=== PATIENT | male | born 1960 | race Caucasian/White ===

== ENCOUNTER 2022-07-26 19:05 | Outpatient (CLI) | payer OTHER, SELFPAY | END 2022-07-26 19:06 | disposition home or self-care (01) | PROVIDERS: PCP Family Medicine; Visit Provider Nurse Practitioner Family | DX: L03.90 Cellulitis, unspecified (principal) | CPT/HCPCS: 86618 ==

== ENCOUNTER 2022-10-20 19:35 | Emergency (ER) | payer OTHER, SELFPAY ==
[2022-10-20] VITALS (10 sets, daily range): BP systolic 135–169; BP diastolic 79–107; PULSE 54–75; RESP 16; TEMP 36.7; O2SAT 96–98; BMI 31.2
--- NOTE | 2022-10-20 19:50 | ED.GENADULT ---
HPI - General Adult General Chief complaint: Arrhythmia/Palpitations Stated complaint: A Fib type stuff Time Seen by Provider: 10/20/22 19:38 History of Present Illness HPI narrative: CC: Intermittent Chest Pain w/ Exertion pt. noticed irregular heart rate on watch. feels fine right now. denies chest pain, shortness of breath. 61-year-old man presenting to the emergency department with concern of ?AFib type stuff?. Has been having episodes particularly with exertion where will feel his heart start to race and feel it deep ache in his upper chest sometimes spreading into jaw and both arms. Can be a little short of breath with this to. Evaluated in the past for similar symptoms though does not sound like they were quite as intense. Did have placement of Holter monitor and echocardiogram. 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 No treatments otherwise done. Sounds like has been having more frequent episodes and a few days ago 1 lasting as long as 15 minutes that left him rather tired afterwards. It may last only minute or to. Apple watch monitoring has recorded heart rates as high as the 1 50s briefly I think even low 160s. Rhythm monitoring presented here as captured on their phone shows an irregular heartbeat that does not appear to show P ways and is in the low 100s. This would appear to be atrial fibrillation. Does not describe leg pain with ambulation. At rest feels well. Does drink caffeine and alcohol. No family history of arrhythmias. Medications are reviewed. Amlodipine for blood pressure. Also losartan. Does not take a beta-vinh. History of sleep apnea using CPAP. They also recall having a tick bite this last summer, July I believe, where a tick that was not believed to have been a deer tick nibbled on his belly button. Subsequently developed a palm sized hard red rash periumbilical. Follow-up testing is reported to have been unclear. They are wondering if this might be related to these more recent events. At the time had been taking low-dose doxycycline as continues to do for rosacea and was also subsequently treated with a full dose of doxycycline for 10 days. Related Data Home Medications Medication Instructions Recorded Confirmed allopurinol 300 mg tablet 300 mg PO DAILY 07/26/22 10/20/22 amlodipine 10 mg tablet 10 mg PO DAILY 07/26/22 10/20/22 doxazosin 4 mg tablet 4 mg PO BID 07/26/22 10/20/22 doxycycline hyclate 50 mg capsule 50 mg PO DAILY 07/26/22 10/20/22 losartan 100 mg tablet 100 mg PO DAILY 07/26/22 10/20/22 omeprazole 20 mg capsule,delayed 40 mg PO QDAY 07/26/22 10/20/22 release trazodone 50 mg tablet 50 mg PO HS 07/26/22 10/20/22 Previous Rx's Medication Instructions Recorded metoprolol tartrate 25 mg tablet 12.5 mg (1/2 x 25 mg) PO BID #30 10/20/22 tabs Allergies Allergy/AdvReac Type Severity Reaction Status Date / Time No Known Drug Allergies Allergy Verified 10/20/22 19:50 Review of Systems Status of ROS: Reports: 6 or more systems reviewed and unremarkable except as noted in History and below [facility] Medical History (Updated 10/20/22 @ 23:30 by Shantanu Patrick MD) Hypertension ?I10 - Essential (primary) hypertension (ICD-10) Cellulitis ?L03.90 - Cellulitis, unspecified (ICD-10) Tick bite ?W57.XXXA - Bitten or stung by nonvenomous insect and other nonvenomous arthropods, initial encounter (ICD-10) Surgical History No significant past surgical history Social History Smoking Status: Never smoker Second hand tobacco smoke exposure: No How often do you have a drink containing alcohol: never How often do you have six or more drinks on one occasion: Never AUDIT-C Alcohol total score: 0 Non-prescribed substance use: denies use Exam Narrative: Exam Narrative: Pleasant. NAD. Skin is warm and dry. Trace pretibial pitting edema in the left more than the right. Well-perfused peripherally. Is breathing easily though at times seems to be subtly labored for a breath or 2. Lungs appear to be clear. Heart in a regular rate and rhythm without murmur rub or gallop. There is no JVD. Abdomen is overweight soft and nontender. Const: Vital Signs, click to edit/add: Vital Signs - 24 hr 10/20/22 19:46 10/20/22 20:02 Temperature 98.0 F Pulse Rate 62 Pulse Rate [Right Pulse Oximeter] 75 Respiratory Rate 16 16 Blood Pressure 169/107 H Blood Pressure [Ri ght Upper Arm] 135/79 Pulse Oximetry 97 97 Oxygen Delivery Me thod Room Air Documenting provider has reviewed patient's vital signs: yes Course Vital Signs Vital signs: Initial Vital Signs Respiratory Effort Normal, Spontaneous, Non-Labored 10/20/22 19:45 Respiratory Depth Normal 10/20/22 19:45 Respiratory Pattern Normal 10/20/22 19:45 Pulse Oximetry 98 10/20/22 19:45 Vital Signs Pulse Oximetry 98 10/20/22 19:45 Temperature 98.0 F 10/20/22 23:37 Pulse Rate 65 10/20/22 23:37 Respiratory Rate 16 10/20/22 23:37 Blood Pressure 158/89 H 10/20/22 23:37 Pulse Oximetry 97 10/20/22 22:47 Oxygen Delivery Method Room Air 10/20/22 22:47 Medical Decision Making MDM Narrative Medical decision making narrative: I would be less reliant on Apple watch to make a diagnosis of an arrhythmia maybe some more so convinced of actual rate recording. Rhythm strips as pictured on the phone though do indeed look to be atrial fibrillation. Generally not fast enough to be where I might think is supraventricular tachycardia. This does not appear to be a primary ischemic event. No persistent symptoms to suggest pulmonary embolus or pneumonia or pneumothorax or pneumomediastinum or pneumonia. Will hydrate with IV fluids. Check labs, inflammatory markers that might correlate further to this question of Lyme exposure. Monitor on diagnostic cardiac sonographer. Does have a relationship with Cardiology. Anticipate talking with them as well. I did review labs that were collected for evaluation for Lymes. Would look like initially showed antibodies but confirmatory then was negative. Labs ultimately were unremarkable though did repeat troponin as level of 0.07 was indeterminate. This proved to be flat though on repeat. Is monitored on diagnostic cardiac sonographer without further event. Pulse often in the 50s. I suppose this is probably why was not given metoprolol? Did discuss with Cardiology. Recommendations as expected or to start low-dose metoprolol. Will also place what we are able to do here at least, that is a 48 hour Holter monitor. I cannot arrange ZIO patch. See patient discharge plan Lab Data Lab results reviewed: Yes I reviewed the patient's lab results Labs: Lab Results 10/20/22 10/20/22 10/20/22 Range/Units 20:16 20:20 21:38 WBC 5.47 (4.50-11.00) K/uL RBC 4.53 (4.30-5.90) m/uL Hgb 14.0 (13.5-17.5) gm/dL Hct 40.9 (37.0-53.0) % MCV 90 (80-100) fL MCH 31 (26-34) pg MCHC 34 (32-36) gm/dL RDW Coeff of [place] 12.3 (11.5-15.5) % Plt Count 279 (140-440) K/uL Neut % (Auto) 53.1 (42.0-72.0) % Lymph % (Auto) 31.1 (20-44) % [place] % (Auto) 11.3 H (0.0-11.0) % Eos % (Auto) 2.7 (0.0-7.0) % Baso % (Auto) 0.9 (0.0-3.0) % Neut # (Auto) 2.90 (1.7-7.0) K/uL Lymph # (Auto) 1.70 (0.90-2.90) K/uL [place] # (Auto) 0.60 (0.00-0.90) K/UL Eos # (Auto) 0.15 (0.00-0.50) K/uL Baso # (Auto) 0.05 (0.00-0.30) K/uL Abs Immat Gran (auto) 0.05 (0.00-0.30) K/uL Imm/Tot Granulo (auto) 0.9 % ESR 6 (2-15) mm/hr Sodium 137 (135-149) mmol/L Potassium 4.1 (3.6-5.1) mmol/L Chloride 103 (96-114) mmol/L Carbon Dioxide 28 (20-32) mmol/L Anion Gap 6 L (7-15) mEq/L BUN 22 (7-30) mg/dL Creatinine 0.9 (0.5-1.5) mg/dL Estimated Creat Clear 105.63 Estimated GFR 98 ml/min Glucose 107 (60-115) mg/dL Calcium 9.6 (8.4-10.6) mg/dL Magnesium 2.0 (1.5-2.6) mg/dL Troponin I Cancelled 0.07 H* 0.08 H* C-Reactive Protein Cancelled < 0.5 L NT-Pro-B Natriuret Pep 297 pg/mL TSH 2.630 (0.270-4.20) uIU/mL ECG Data Attestation: I personally reviewed and interpreted this ECG as follows: (Normal sinus rhythm. Rate of 65. No acute ischemic changes.) Discharge Plan Discharge Clinical Impression: Tachyarrhythmia, Bradycardia Patient Disposition: Home w/ Parent or Adult Condition: Stable Additional Instructions: Important to focus on staying hydrated... with water. I would try to limit your alcohol intake as it can trigger atrial fibrillation in particular. Caffeine in moderation is okay. If began having another episode, can try to break it with some of those techniques or maneuvers we discussed. If not successful within an hour, present to the emergency department. Return otherwise sooner if experiencing worsening lightheadedness, more intense chest pain than usual, worsening shortness of breath. No restrictions on activity level other than tolerance. I spoke to [facility] today. They would like to see you in follow-up in clinic. Phone number [phone]. Can call them tomorrow to make the follow-up appointment. Take metoprolol as prescribed until follow-up. Return Holter monitor as requested and would anticipate following up those results at your [facility] appointment. Prescriptions: New metoprolol tartrate 25 mg tablet 12.5 mg PO BID Qty: 30 0RF No Action losartan 100 mg tablet 100 mg PO DAILY allopurinol 300 mg tablet 300 mg PO DAILY doxazosin 4 mg tablet 4 mg PO BID amlodipine 10 mg tablet 10 mg PO DAILY trazodone 50 mg tablet 50 mg PO HS Patient Comments: take 1-2 tabs at night for sleep as needed doxycycline hyclate 50 mg capsule 50 mg PO DAILY omeprazole 20 mg capsule,delayed release(DR/EC) 40 mg PO QDAY Follow Up/Referrals: Ian Benz MD [Primary Care Provider] - Stand Alone Forms: [employer] Info Instructions
[2022-10-20] MEDS: 0.9 % SODIUM CHLORIDE 1000 ml 1,000 ML IV (20:20)
[2022-10-20 20:43] LABS: Basophils Absolute Auto 0.05 K/uL (0.00-0.30); Basophils Percent Auto 0.9 % (0.0-3.0); Eosinophils Absolute Auto 0.15 K/uL (0.00-0.50); Eosinophils Percent Auto 2.7 % (0.0-7.0); Hematocrit 40.9 % (37.0-53.0); Immature Granulocytes Abs Auto 0.05 K/uL (0.00-0.30); Immature Granulocytes Pct Auto 0.9 %; Lymphocytes Percent Auto 31.1 % (20-44); Mean Corpuscular HGB Conc 34 gm/dL (32-36); Mean Corpuscular Hemoglobin 31 pg (26-34); Mean Corpuscular Volume 90 fL (80-100); Monocytes Percent Auto 11.3 % (0.0-11.0); Neutrophils Percent Auto 53.1 % (42.0-72.0); Platelet Count* 279 K/uL (140-440); RDW Coefficient of Variation % 12.3 % (11.5-15.5); Red Blood Count 4.53 m/uL (4.30-5.90); White Blood Count* 5.47 K/uL (4.50-11.00)
[2022-10-20 20:45] LABS: Chloride* 103 mmol/L (96-114); Sodium* 137 mmol/L (135-149)
[2022-10-20 20:46] LABS: Potassium* 4.1 mmol/L (3.6-5.1)
[2022-10-20 20:48] LABS: Creatinine* 0.9 mg/dL (0.5-1.5); Est. Creatinine Clearance* 105.63; Estimated Glomerular Filt Rate 98 ml/min
[2022-10-20 20:49] LABS: Anion Gap 6 mEq/L (7-15); Blood Urea Nitrogen* 22 mg/dL (7-30); Carbon Dioxide* 28 mmol/L (20-32); Glucose* 107 mg/dL (60-115)
[2022-10-20 20:50] LABS: Calcium* 9.6 mg/dL (8.4-10.6)
[2022-10-20 20:58] LABS: C Reactive Protein* < 0.5 mg/dL (0.5-1.0)
[2022-10-20 20:59] LABS: NT Pro B Type NatriureticPept* 297 pg/mL; Slide Review Reflex No
[2022-10-20 21:05] LABS: Troponin I* 0.07 ng/mL (0.01-0.04)
[2022-10-20 21:52] LABS: Erythrocyte SedimentationRate* 6 mm/hr (2-15)
[2022-10-20 22:30] LABS: Troponin I* 0.08 ng/mL (0.01-0.04)
[2022-10-20] MEDS: METOPROLOL TARTRATE 25 MG TABLET 12.5 MG PO (22:51)
== END 2022-10-20 23:37 | disposition home or self-care (01) ==
PROVIDERS: Emergency Provider Family Medicine; PCP Family Medicine
DX: I47.1 Supraventricular tachycardia (principal); R00.1 Bradycardia, unspecified
CPT/HCPCS: 36415; 80048; 83735; 83880; 84443; 84484; 85025; 85651; 86140; 93005; 93225; 93226; 94761; 99284; A9270; J7030